=== PATIENT | female | born 1965 | race Caucasian/White ===

== ENCOUNTER 2017-07-25 11:48 | Emergency (ER) | payer OTHER ==
[2017-07-25 12:31] VITALS: BP 119/67
--- NOTE | 2017-07-25 13:08 | ED ---
Lower Extremity - HPI Summary HPI Summary: 51-year-old female presents with right foot pain for the past 2 days. She denies any injury. She states she gets numbness and tingling into her foot. She states that toes been feeling cold. She also notes bruising to the bottom of her foot. Has a history of Achilles pain when she wakes up in the morning. She also admits to occasional calf pain. No chest pain or shortness breath. She denies any family history of blood clots. She is nonsmoker. no history of IV drug use. - History of Current Complaint Pain Intensity: 2 <Emily Umaña - Last Filed: 07/25/17 13:51> <Mayda Shaw - Last Filed: 07/25/17 18:18> - History of Current Complaint Chief Complaint: UCLowerExtremity Stated Complaint: FOOT PAIN Time Seen by Provider: 07/25/17 12:16 - Allergies/Home Medications Allergies/Adverse Reactions: Allergies Allergy/AdvReac Type Severity Reaction Status Date / Time No Known Allergies Allergy Verified 07/25/17 12:15 Home Medications: Home Medications Estrogen Patch 1 patch TRANSDERM EVERY OTHER DAY 07/25/17 [History Confirmed ] Ibuprofen TAB* [Motrin TAB* 400 MG] 400 mg PO Q6H PRN 07/25/17 [History Confirmed 07/25/17] Med For Urinary Incontinence 1 tab PO DAILY 07/25/17 [History Confirmed 07/25/17 ] Multivitamin [Multivitamins] 1 cap PO DAILY 07/25/17 [History Confirmed 07/25/17 ] PMH/Surg Hx/FS Hx/Imm Hx Endocrine/Hematology History: Denies: Hx Anticoagulant Therapy Cardiovascular History: Denies: Hx Hypertension Respiratory History: Denies: Hx Chronic Obstructive Pulmonary Disease (COPD) - Surgical History Surgery Procedure, Year, and Place: 2002 Lasic Eye Correction. 1999 Partial Hysterectomy. 2003 Breast Augmentation. 2012 Bladder sling, Rectocele, cystocele Repair Infectious Disease History: No Infectious Disease History: Denies: Traveled Outside the [place] in Last 30 Days - Family History Known Family History: Negative: Blood Disorder - Social History Alcohol Use: None Substance Use Type: Reports: None Smoking Status (MU): Never Smoked Tobacco <Emily Umaña - Last Filed: 07/25/17 13:51> Review of Systems Negative: Fever Negative: Chest Pain Negative: Shortness Of Breath Positive: Myalgia - right foot, Edema - right foot All Other Systems Reviewed And Are Negative: Yes <Emily Umaña - Last Filed: 07/25/17 13:51> Physical Exam Triage Information Reviewed: Yes Vital Signs On Initial Exam: Initial Vitals Temp Pulse Resp BP Pulse Ox 98.3 F 59 18 119/67 99 07/25/17 12:22 07/25/17 12:22 07/25/17 12:22 07/25/17 12:22 07/25/17 12:22 Vital Signs Reviewed: Yes Appearance: Positive: Well-Appearing Skin: Positive: Warm, Dry Head/Face: Positive: Normal Head/Face Inspection Eyes: Positive: Normal, Conjunctiva Clear ENT: Positive: Pharynx normal Respiratory/Lung Sounds: Positive: Clear to Auscultation, Breath Sounds Present Cardiovascular: Positive: Normal, RRR Musculoskeletal: Positive: Strength/ROM Intact - right foot, Edema Right - foot , Other - ecchymosis to toes, good pulses, capillary refill<2 secs, tenderness over plantar aspect of fot Neurological: Positive: Normal Psychiatric: Positive: Normal <Emily Umaña - Last Filed: 07/25/17 13:51> Vital Signs On Initial Exam: Initial Vitals Temp Pulse Resp BP Pulse Ox 98.3 F 59 18 119/67 99 07/25/17 12:22 07/25/17 12:22 07/25/17 12:22 07/25/17 12:22 07/25/17 12:22 <Mayda Shaw - Last Filed: 07/25/17 18:18> Diagnostics - Vital Signs Vital Signs Temp Pulse Resp BP Pulse Ox 07/25/17 12:22 98.3 F 59 18 119/67 99 - Radiology foot Xray Interpretation: No Acute Changes Radiology Interpretation Completed By: Radiologist - Ultrasound No standard instances Ultrasound Interpretation: No Acute Changes Ultrasound Interpretation Completed By: Radiologist <Emily Umaña - Last Filed: 07/25/17 13:51> - Vital Signs Vital Signs Temp Pulse Resp BP Pulse Ox 07/25/17 12:22 98.3 F 59 18 119/67 99 <Mayda Shaw - Last Filed: 07/25/17 18:18> Lower Extremity Course/Dx - Course Course Of Treatment: 51-year-old female presents with right foot pain for the past 2 days. She denies any injury. She states she gets numbness and tingling into her foot. She states that. Toes been feeling cold. She also notes bruising to the bottom of her foot. Has a history of Achilles pain when she wakes up in the morning. She also admits to occasional calf pain. No chest pain or shortness breath. She denies any family history of blood clots. She is nonsmoker. on exam has edema and ecchymosis to toe, sensation grossly intact. good pulses. tenderness plantar aspect of foot. xray foot normal. u/s leg normal. discussed could be tarsal tunnel although does not explain bruising. will have follow up with ortho for further work up. patient understand and agrees with plan. - Diagnoses Differential Diagnosis/HQI/PQRI: Positive: DVT, Fracture (Closed), Sprain, Strain <Emily Umaña - Last Filed: 07/25/17 13:51> <Mayda Shaw - Last Filed: 07/25/17 18:18> - Diagnoses Provider Diagnoses: Right foot pain Discharge - Sign-Out/Discharge Documenting (check all that apply): Discharge/Admit/Transfer - Billing Disposition and Condition Condition: GOOD Disposition: Home <Emily Umaña - Last Filed: 07/25/17 13:51> - Billing Disposition and Condition Condition: GOOD Disposition: Home <Mayda Shaw - Last Filed: 07/25/17 18:18> - Discharge Plan Condition: Good Disposition: HOME Patient Education Materials: R.I.C.E. Treatment (ED) Referrals: Edwin Oleary MD [Medical Doctor] - [facility] [place] [facility] [place]Outside] Additional Instructions: Take Tylenol or ibuprofen every 6 hours as needed for pain Apply ice, rest, elevate wear supportive shoes Follow up with ortho Return to ED if develop any new or worsening symptoms Attestation Statement User Type: Provider - I was available for consult. This patient was seen by the EMILEE. The patient was not presented to, seen by, or examined by me. -Justina <Mayda Shaw - Last Filed: 07/25/17 18:18>
--- NOTE | 2017-07-25 13:23 | RAD ---
HISTORY: right calf/foot pain and edema COMPARISONS: None relevant TECHNIQUE: Multiple transverse and longitudinal ultrasound images were obtained of the right lower extremity from the level of the common femoral vein inferiorly through to the infrapopliteal veins using grayscale, color Doppler, and spectral Doppler imaging with and without compression and with augmentation. Comparison images were obtained of the contralateral common femoral vein. FINDINGS: VEINS: The venous system of the right lower extremity is compressible throughout its course, with normal flow on color Doppler imaging and normal response to augmentation on spectral Doppler imaging. SOFT TISSUES: Unremarkable. OTHER FINDINGS: None. IMPRESSION: NO RIGHT LOWER EXTREMITY DEEP VEIN THROMBOSIS
--- NOTE | 2017-07-25 13:32 | RAD ---
HISTORY: right foot pain COMPARISONS: None VIEWS: 3, Frontal, lateral, and oblique views right foot pain FINDINGS: BONE DENSITY: Normal. BONES: There is no displaced fracture. There are small posterior calcaneal enthesophytes. 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 ALIGNMENT: There is no dislocation. SOFT TISSUES: Unremarkable. OTHER FINDINGS: None. IMPRESSION: MINIMAL DEGENERATIVE CHANGES. NO ACUTE OSSEOUS INJURY. IF SYMPTOMS PERSIST, RECOMMEND REPEAT IMAGING.
== END 2017-07-25 13:55 | disposition home or self-care (01) ==
LOC: UCEAST 11:48
DX: M79.671 Pain in right foot (principal); R20.0 Anesthesia of skin; R20.2 Paresthesia of skin; R60.0 Localized edema; M79.669 Pain in unspecified lower leg; R58 Hemorrhage, not elsewhere classified
CPT/HCPCS: 99201; G0463